=== PATIENT | male | born 1965 | race Caucasian/White ===

== ENCOUNTER 2018-06-30 08:44 | Emergency (ER) | payer OTHER ==
[~2018-06-30] VITALS: Ht 177.8 cm; Wt 135.9 kg
[~2018-06-30 08:44] MED LIST: ADVIL200 MG PO; CRESTOR20 MG PO; DAILY VITAMIN1 EAC8 PO; GLUCOPHAGE500 MG PO; GLUCOSAMINE &1 EAC1 PO; INDERAL40 MG PO; MULTIVITAMIN1 EAC2 PO; NEXIUM40 MG PO
[2018-06-30 09:52] LABS: HEMOGLOBIN 13.8 G/DL (12.5-16.6); MCH 29.9 PG (29.0-34.0); MCHC 34.5 G/DL (30.0-36.0); MCV 86.8 FL (86-99); PLATELET COUNT 254 K/uL (156-360); RBC DIS.WIDTH-CV 12.6 % (11.8-14.6); RBC DIS.WIDTH-SD 39.9 % (39-53); RED BLOOD COUNT 4.61 M/uL (4.00-5.50); WHITE BLOOD COUNT 14.5 K/uL (4.1-10.2)
[2018-06-30 10:04] LABS: ALBUMIN 3.8 g/dL (3.2-4.8)
[2018-06-30 10:05] LABS: AMYLASE 28 IU/L (1-118); CHLORIDE 103 mEq/L (99-109); POTASSIUM 4.6 mEq/L (3.7-5.4); SODIUM 138 mEq/L (136-147)
[2018-06-30 10:07] LABS: GLUCOSE 112 mg/dL (70-99); TOTAL PROTEIN 6.6 g/dL (6.4-8.3)
[2018-06-30 10:10] LABS: ALKALINE PHOSPHATASE 83 IU/L (3-129)
[2018-06-30 10:11] LABS: CREATININE 0.8 mg/dL (0.6-1.3); GFR ESTIMATE (CALCULATED) > 59 mL/min/ (58.99-99999)
[2018-06-30 10:12] LABS: AST (GOT) 16 IU/L (2-34); UREA NITROGEN (BUN) 12 mg/dL (9-23)
[2018-06-30 10:13] LABS: ALT (GPT) 18 IU/L (3-49)
[2018-06-30 10:15] LABS: TROP-I INTERPRETATION NEGATIVE; TROPONIN-I < 0.01 ng/mL (0.0-0.30)
[2018-06-30 10:40] LABS: LIPASE 13 U/L (1.0-51.0)
[2018-06-30 12:53] VITALS: BP 117/63
[2018-06-30 13:23] LABS: TROP-I INTERPRETATION NEGATIVE; TROPONIN-I < 0.01 ng/mL (0.0-0.30)
== END 2018-06-30 15:15 | disposition home or self-care (01) ==
LOC: EME 08:44
PROVIDERS: Nurse Practitioner Family
DX: R10.13 Epigastric pain (principal); I10 Essential (primary) hypertension; E78.5 Hyperlipidemia, unspecified; F17.200 Nicotine dependence, unspecified, uncomplicated; Z90.49 Acquired absence of other specified parts of digestive tract
CPT/HCPCS: 71046; 74177; 80053; 82150; 83690; 84484; 85027; 93005; C9113; J3010; J7030